=== PATIENT | female | born 1995 | race Caucasian/White ===

== ENCOUNTER 2016-08-17 12:32 | Emergency (ER) | payer OTHER ==
[~2016-08-17] VITALS: Ht 152.4 cm; Wt 56.7 kg
[~2016-08-17 12:32] MED LIST: ETHY1TAB2 PO; IMIP10TA2 PO; NAPR-874 PO; PARO10TA3 PO
[2016-08-17] MEDS ORDERED: SODIUM CHLORIDE 0.9% 1,000ML IVBOLUS ONE (14:00)
[2016-08-17] MEDS ORDERED: ONDANSETRON 2MG/ML, 2ML IVPush ONE (14:00)
[2016-08-17] MEDS ORDERED: SODIUM CHLORIDE FLUSH 10ML SYR IVF ONE (14:00)
[2016-08-17] MEDS ORDERED: ONDANSETRON 2MG/ML, 2ML ONE (14:08)
[2016-08-17 14:40] LABS: BLOOD UREA NITROGEN 14 mg/dL (7-18)
[2016-08-17 14:45] LABS: ASPARTATE AMINO TRANSFERASE 23 U/L (15-37)
[2016-08-17 16:30] VITALS: BP 94/54
== END 2016-08-17 17:00 | disposition home or self-care (01) ==
LOC: ED 14:25
DX: N30.90 Cystitis, unspecified without hematuria (principal); N93.8 Other specified abnormal uterine and vaginal bleeding; D68.0 Von Willebrand disease
CPT/HCPCS: 36415; 51701; 76830; 80053; 81001; 84703; 85025; 85610; 85730; 87086; 96361; 96374; 99285; J2405; J7030; P9612

== ENCOUNTER 2016-09-21 06:45 | Emergency (ER) | payer OTHER ==
[~2016-09-21] VITALS: Ht 152.4 cm; Wt 57.3 kg
[2016-09-21 08:15] LABS: BLOOD UREA NITROGEN 12 mg/dL (7-18)
[2016-09-21 08:41] VITALS: BP 92/53
== END 2016-09-21 09:03 | disposition home or self-care (01) ==
LOC: ED 08:50
DX: G40.909 Epilepsy, unspecified, not intractable, without status epilepticus (principal)
CPT/HCPCS: 36415; 80048; 82040; 82550; 84703; 85025; 93005; 99285

== ENCOUNTER 2016-10-29 22:05 | Emergency (ER) | payer OTHER ==
[~2016-10-29] VITALS: Ht 152.4 cm; Wt 56.7 kg
[2016-10-29] MEDS ORDERED: ALBUTEROL/IPRATROPIUM 2.5MG/0.5MG, 3 ML NPPB ONE (23:00)
[2016-10-29 23:07] LABS: BLOOD UREA NITROGEN 7 mg/dL (7-18)
[2016-10-30 00:49] VITALS: BP 119/77
== END 2016-10-30 01:03 | disposition home or self-care (01) ==
LOC: ED 22:35
DX: J45.21 Mild intermittent asthma with (acute) exacerbation (principal); J06.9 Acute upper respiratory infection, unspecified
CPT/HCPCS: 36415; 71010; 80048; 82040; 85025; 87081; 87147; 87880; 93005; 94640; 99285; J7512

== ENCOUNTER 2017-01-05 14:08 | Emergency (ER) | payer OTHER ==
[~2017-01-05] VITALS: Ht 152.4 cm; Wt 60.5 kg
[2017-01-05 14:10] VITALS: BP 111/68
[2017-01-05] MEDS ORDERED: LIDOCAINE 1%, 20ML SQ ONE (15:00)
[2017-01-05] MEDS ORDERED: LIDOCAINE 1%, 20ML ONE (15:02)
[2017-01-05] MEDS ORDERED: SILVER NITRATE STICK TP ONE ×2 (15:23→16:00)
== END 2017-01-05 16:25 | disposition home or self-care (01) ==
LOC: ED 16:19
DX: L60.0 Ingrowing nail (principal); J45.909 Unspecified asthma, uncomplicated; D68.0 Von Willebrand disease
CPT/HCPCS: 11730

== ENCOUNTER 2017-02-16 21:37 | Emergency (ER) | payer OTHER ==
[~2017-02-16] VITALS: Ht 152.4 cm; Wt 60.3 kg
[~2017-02-16 21:37] MED LIST changes: -NAPR-874 PO; +NAPR250T6 PO
[2017-02-16 21:41] VITALS: BP 117/69
[2017-02-16] MEDS ORDERED: IBUPROFEN 200 MG TABLET ONE (22:16)
[2017-02-16] MEDS ORDERED: DEXAMETHASONE 4 MG TABLET ONE (22:16)
[2017-02-16] MEDS ORDERED: DEXAMETHASONE 4 MG TABLET PO STA (22:19)
[2017-02-16] MEDS ORDERED: IBUPROFEN 200 MG TABLET PO ONE (22:30)
== END 2017-02-16 23:17 | disposition home or self-care (01) ==
LOC: ED 23:05
DX: J02.8 Acute pharyngitis due to other specified organisms (principal); J45.909 Unspecified asthma, uncomplicated; G40.909 Epilepsy, unspecified, not intractable, without status epilepticus; G43.909 Migraine, unspecified, not intractable, without status migrainosus
CPT/HCPCS: 87081; 87147; 87880; 99284

== ENCOUNTER 2017-11-13 01:31 | Emergency (ER) | payer OTHER ==
[~2017-11-13] VITALS: Ht 152.4 cm; Wt 59.0 kg
[2017-11-13 03:41] VITALS: BP 117/89
== END 2017-11-13 03:43 | disposition home or self-care (01) ==
LOC: ED 03:31
DX: S83.92XA Sprain of unspecified site of left knee, initial encounter (principal); G40.909 Epilepsy, unspecified, not intractable, without status epilepticus; G43.909 Migraine, unspecified, not intractable, without status migrainosus; J45.909 Unspecified asthma, uncomplicated; W19.XXXA Unspecified fall, initial encounter; Y93.89 Activity, other specified; Y92.009 Unspecified place in unspecified non-institutional (private) residence as the place of occurrence of the external cause; Y99.8 Other external cause status
CPT/HCPCS: 29505; 99284

== ENCOUNTER 2018-01-04 11:36 | Emergency (ER) | payer SELFPAY ==
[~2018-01-04] VITALS: Ht 152.4 cm; Wt 60.0 kg
[2018-01-04] MEDS ORDERED: PYRIDOXINE 25MG TABLET PO ONE (12:00)
[2018-01-04] MEDS ORDERED: DOXYLAMINE 25MG TABLET PO ONE (12:00)
[2018-01-04 12:28] LABS: ALBUMIN 4.2 g/dL (3.4-5.0); ANION GAP 5 mmol/L (5-15); CALCIUM 9.5 mg/dL (8.5-10.1); CHLORIDE 108 mmol/L (98-107); CREATININE 0.77 mg/dL (0.55-1.02)
[2018-01-04 12:39] LABS: BASOPHILS # (AUTO) 0.04 x10^3/uL (0-0.1); BASOPHILS % (AUTO) 0 % (0-1); EOSINOPHILS # (AUTO) 0.29 x10^3/uL (0-0.4); EOSINOPHILS % (AUTO) 2 % (1-7); LYMPHOCYTES # (AUTO) 2.17 x10^3/uL (1-3.4); LYMPHOCYTES % (AUTO) 17 % (22-44); MD NO; MEAN CORPUSCULAR HEMOGLOBIN 26.5 pg (27.0-34.8); MEAN CORPUSCULAR VOLUME 80.2 fL (80-100); MEAN PLATELET VOLUME 9.2 fL (7.4-10.4); MONOCYTES # (AUTO) 0.71 x10^3/uL (0.2-0.8); MONOCYTES % (AUTO) 6 % (2-9); NEUTROPHILS # (AUTO) 9.71 x10^3/uL (1.8-6.8); NEUTROPHILS % (AUTO) 75 % (42-75); PLATELET COUNT 396 x10^3/uL (130-400); RED BLOOD COUNT 4.96 x10^6/uL (3.82-5.3); RED CELL DISTRIBUTION WIDTH 13.9 % (9.6-15.2)
[2018-01-04 12:53] VITALS: BP 102/68
[2018-01-04 12:55] LABS: MICROSCOPIC INDICATED
[2018-01-04 12:57] LABS: CULTURE INDICATED? YES
== END 2018-01-04 13:16 | disposition home or self-care (01) ==
LOC: ED 13:10
DX: O20.0 Threatened abortion (principal); N30.00 Acute cystitis without hematuria; G40.909 Epilepsy, unspecified, not intractable, without status epilepticus; J45.909 Unspecified asthma, uncomplicated; R11.2 Nausea with vomiting, unspecified; Z87.898 Personal history of other specified conditions
CPT/HCPCS: 36415; 76801; 80048; 81001; 82040; 84702; 85025; 87086; 99285

== ENCOUNTER 2018-03-12 09:30 | Emergency (ER) | payer SELFPAY ==
[~2018-03-12] VITALS: Ht 152.4 cm; Wt 61.2 kg
[2018-03-12 10:32] LABS: CLUE CELLS PRESENT (NONE SEEN); WET PREP WBCS FEW (FEW)
[2018-03-12 10:52] LABS: MICROSCOPIC AUTO
[2018-03-12 10:53] LABS: CULTURE INDICATED? YES
[2018-03-12] MEDS ORDERED: AZITHROMYCIN 250 MG TABLET PO ONE (11:00)
[2018-03-12] MEDS ORDERED: LIDOCAINE-MPF 1%, 2ML ONE (11:20)
[2018-03-12] MEDS ORDERED: AZITHROMYCIN 250 MG TABLET ONE (11:20)
[2018-03-12] MEDS ORDERED: CEFTRIAXONE 250 MG ONE (11:20)
[2018-03-12] MEDS ORDERED: CEFTRIAXONE 250 MG IM ONE (11:30)
[2018-03-12 12:06] VITALS: BP 98/57
== END 2018-03-12 12:40 | disposition home or self-care (01) ==
LOC: ED 10:20
DX: N30.00 Acute cystitis without hematuria (principal); J45.909 Unspecified asthma, uncomplicated; G43.909 Migraine, unspecified, not intractable, without status migrainosus; F17.200 Nicotine dependence, unspecified, uncomplicated
CPT/HCPCS: 76830; 81001; 81025; 87086; 87147; 87210; 87491; 87591; 87808; 96372; 99285; J0696

== ENCOUNTER 2018-10-10 16:14 | Emergency (ER) | payer OTHER ==
[~2018-10-10] VITALS: Ht 152.4 cm; Wt 64.5 kg
--- NOTE | 2018-10-10 16:30 | NUR ---
PT ARRIVED TO ROOM 18 AMBULATORY. PT HAS C/O REPORTS HAVING PAIN WITH PEEING FOR OVER A MONTH. DID NOT COME IN DUE TO NOT HAVING INSURANCE. PT REPORTS SHE NOW HAS DEVELOPED ABD PAIN WITH PAINFUL URINATION AND FREQUENCY. PT REPORTS YEAST. PT AAO X 4, VSS, DRESSED IN GOWN AND RESTING IN GURNEY. CALL LIGHT AND BELONGINGS IN PLACE.
[2018-10-10] MEDS ORDERED: ALBU0.63 NEB (16:48)
[2018-10-10 16:57] LABS: BASOPHILS # (AUTO) 0.04 x10^3/uL (0-0.1); BASOPHILS % (AUTO) 0 % (0-1); EOSINOPHILS # (AUTO) 0.12 x10^3/uL (0-0.4); EOSINOPHILS % (AUTO) 1 % (1-7); LYMPHOCYTES # (AUTO) 2.54 x10^3/uL (1-3.4); LYMPHOCYTES % (AUTO) 28 % (22-44); MD NO; MEAN CORPUSCULAR HEMOGLOBIN 26.8 pg (27.0-34.8); MEAN CORPUSCULAR HGB CONC 32.3 g/dL (32.4-35.8); MEAN CORPUSCULAR VOLUME 82.9 fL (80-100); MEAN PLATELET VOLUME 9.3 fL (7.4-10.4); MONOCYTES # (AUTO) 0.62 x10^3/uL (0.2-0.8); MONOCYTES % (AUTO) 7 % (2-9); NEUTROPHILS # (AUTO) 5.67 x10^3/uL (1.8-6.8); NEUTROPHILS % (AUTO) 63 % (42-75); PLATELET COUNT 294 x10^3/uL (130-400); RED BLOOD COUNT 4.88 x10^6/uL (3.82-5.3); RED CELL DISTRIBUTION WIDTH 13.5 % (9.6-15.2)
[2018-10-10 17:04] LABS: ALBUMIN 4.1 g/dL (3.4-5.0); ANION GAP 9 mmol/L (5-15); CALCIUM 9.1 mg/dL (8.5-10.1); CHLORIDE 108 mmol/L (98-107)
[2018-10-10 17:16] VITALS: BP 104/71
--- NOTE | 2018-10-10 17:17 | NUR ---
PT TO US.
[2018-10-10 17:43] LABS: CULTURE INDICATED? YES; MICROSCOPIC INDICATED
[2018-10-10] MEDS ORDERED: FLUCONAZOLE 100 MG TABLET PO ONE (18:30)
[2018-10-10 18:32] LABS: CLUE CELLS NONE SEEN (NONE SEEN); WET PREP WBCS MANY (FEW)
[2018-10-10 18:35] LABS: MICROSCOPIC NOT IND
[2018-10-10 18:43] LABS: CULTURE INDICATED? NO
[2018-10-10] MEDS ORDERED: AZITHROMYCIN 500 MG TABLET PO ONE (19:00)
[2018-10-10] MEDS ORDERED: CEFTRIAXONE 250 MG IM ONE (19:00)
[2018-10-10] MEDS ORDERED: CEFTRIAXONE 250 MG ONE (19:02)
[2018-10-10] MEDS ORDERED: FLUCONAZOLE 100 MG TABLET ONE (19:02)
[2018-10-10] MEDS ORDERED: AZITHROMYCIN 500 MG TABLET ONE (19:02)
--- NOTE | 2018-10-10 19:04 | NUR ---
ASSUMING CARE OF PT. AT THIS TIME.
== END 2018-10-10 19:28 | disposition home or self-care (01) ==
LOC: ED 19:19
DX: B37.3 Candidiasis of vulva and vagina (principal); R30.0 Dysuria; R10.2 Pelvic and perineal pain; G40.909 Epilepsy, unspecified, not intractable, without status epilepticus; J45.909 Unspecified asthma, uncomplicated; Z88.0 Allergy status to penicillin
CPT/HCPCS: 36415; 76830; 80048; 81001; 81003; 82040; 84703; 85025; 87077; 87086; 87147; 87186; 87210; 87491; 87591; 87808; 96372; 99284; J0696

== ENCOUNTER 2019-03-24 19:50 | Emergency (ER) | payer SELFPAY ==
[~2019-03-24] VITALS: Ht 165.1 cm; Wt 67.9 kg
[~2019-03-24 19:50] MED LIST changes: +ALBU0.63 NEB
[2019-03-24 19:59] VITALS: BP 114/66
[2019-03-24] MEDS ORDERED: DEXAMETHASONE 4 MG TABLET PO STA (20:25)
[2019-03-24] MEDS ORDERED: DEXAMETHASONE 4 MG TABLET ONE (20:26)
== END 2019-03-24 20:41 | disposition home or self-care (01) ==
LOC: ED 20:20
DX: J03.00 Acute streptococcal tonsillitis, unspecified (principal); G43.909 Migraine, unspecified, not intractable, without status migrainosus
CPT/HCPCS: 99283